=== PATIENT | female | born 1955 | race Caucasian/White ===

== ENCOUNTER 2024-04-29 13:52 | Emergency (ER) | payer MEDICARE, BC, SELFPAY ==
[2024-04-29 13:58] VITALS: BP 135/84; PULSE 64; RESP 20; TEMP 36.1; O2SAT 96; BMI 21.6
--- NOTE | 2024-04-29 14:15 | ED.GENADULT ---
HPI - General Adult General Chief complaint: Abdominal Pain Stated complaint: cramps, weakness Time Seen by Provider: 04/29/24 13:54 History of Present Illness HPI narrative: Patient here with abdominal pain/cramping and diarrhea, pulled call light out in ER lobby. She was here visiting another ER patient. Last bowel movement 3 days prior. Large, loose BM noted in ER patient bathroom with no blood. Reports of episodes of cramping in the past but not this bad. 68-year-old woman presenting to the emergency department Related Data Home Medications ?Medication ?Instructions ?Recorded ?Confirmed levothyroxine .ROUTE 04/29/24 Allergies Allergy/AdvReac Type Severity Reaction Status Date / Time No Known Drug Allergies Allergy Verified 04/29/24 14:02 Exam Const: Vital Signs, click to edit/add: Vital Signs - 24 hr 04/29/24 13:58 Temperature 97 F L Pulse Rate [Pulse Oximeter] 64 Respiratory Rate 20 Blood Pressure [Ri ght Upper Arm] 135/84 Pulse Oximetry 96 Oxygen Delivery Me thod Room Air Course Vital Signs Vital signs: Initial Vital Signs Temperature 97 F L 04/29/24 13:58 Temperature Source Temporal Artery Scan 04/29/24 13:58 Pulse Rate 64 04/29/24 13:58 Respiratory Rate 20 04/29/24 13:58 Blood Pressure 135/84 04/29/24 13:58 Blood Pressure Mean 101 04/29/24 13:58 Blood Pressure Position Sitting 04/29/24 13:58 Pulse Oximetry 96 04/29/24 13:58 Oxygen Delivery Method Room Air 04/29/24 13:58 Vital Signs Temperature 97 F L 04/29/24 13:58 Pulse Rate 64 04/29/24 13:58 Respiratory Rate 20 04/29/24 13:58 Blood Pressure 135/84 04/29/24 13:58 Pulse Oximetry 96 04/29/24 13:58 Oxygen Delivery Method Room Air 04/29/24 13:58 Temperature 97 F L 04/29/24 13:58 Pulse Rate 64 04/29/24 13:58 Respiratory Rate 20 04/29/24 13:58 Blood Pressure 135/84 04/29/24 13:58 Pulse Oximetry 96 04/29/24 13:58 Oxygen Delivery Method Room Air 04/29/24 13:58 Discharge Plan Discharge Prescriptions: No Action levothyroxine [Synthroid] .ROUTE
--- NOTE | 2024-05-11 13:27 | ED.GENADULT ---
HPI - General Adult General Chief complaint: Abdominal Pain Stated complaint: cramps, weakness Time Seen by Provider: 04/29/24 13:54 History of Present Illness HPI narrative: Spoke with briefly but as she was improved, chose not to be evaluated by this medical provider Related Data Home Medications ?Medication ?Instructions ?Recorded ?Confirmed levothyroxine .ROUTE 04/29/24 Allergies Allergy/AdvReac Type Severity Reaction Status Date / Time No Known Drug Allergies Allergy Verified 04/29/24 14:02 Course Vital Signs Vital signs: Initial Vital Signs Temperature 97 F L 04/29/24 13:58 Temperature Source Temporal Artery Scan 04/29/24 13:58 Pulse Rate 64 04/29/24 13:58 Respiratory Rate 20 04/29/24 13:58 Blood Pressure 135/84 04/29/24 13:58 Blood Pressure Mean 101 04/29/24 13:58 Blood Pressure Position Sitting 04/29/24 13:58 Pulse Oximetry 96 04/29/24 13:58 Oxygen Delivery Method Room Air 04/29/24 13:58 Vital Signs Temperature 97 F L 04/29/24 13:58 Pulse Rate 64 04/29/24 13:58 Respiratory Rate 20 04/29/24 13:58 Blood Pressure 135/84 04/29/24 13:58 Pulse Oximetry 96 04/29/24 13:58 Oxygen Delivery Method Room Air 04/29/24 13:58 Temperature 97 F L 04/29/24 13:58 Pulse Rate 64 04/29/24 13:58 Respiratory Rate 20 04/29/24 13:58 Blood Pressure 135/84 04/29/24 13:58 Pulse Oximetry 96 04/29/24 13:58 Oxygen Delivery Method Room Air 04/29/24 13:58 Discharge Plan Discharge Prescriptions: No Action levothyroxine [Synthroid] .ROUTE Follow Up/Referrals: Provider,Not a Local [Primary Care Provider] -
== END 2024-04-29 14:49 | disposition home or self-care (01) ==
LOC: ED 14:46
PROVIDERS: Emergency Provider Family Medicine
DX: R10.9 Unspecified abdominal pain (principal)
CPT/HCPCS: 99281